=== PATIENT | male | born 1970 | race American Indian/Alaskan Native ===

== ENCOUNTER 2022-03-02 09:32 | Emergency (ER) | payer OTHER ==
--- NOTE | 2022-03-02 10:16 | Emergency Department Report ---
Chief Complaint: Back Pain/Injury Stated Complaint: HEADACHE/LIGHHEADED/BACK PAIN/ X 1 YEAR - HPI History of Present Illness: Chest pain and SOB x 2 months , PTSD, HTN no meds taken. no hx of MT or CVA chest pain is 7 out 10 intermitted pain - ROS Review of Systems: chest pain sternal area. SOB - Exam Vital Signs: Vital Signs 03/02/22 09:33 Temperature 98.0 F Pulse Rate 100 H Respiratory 18 Rate Blood Pressure 155/77 [Left] O2 Sat by Pulse 96 Oximetry MSE screening note: Focused history and physical exam performed. Due to findings the following was ordered: EKG , labs chest xray ordered . orders place patient medically screen to be seen by provider in the back. Active Orders 24 hr Category Date Time Status EKG (12 lead) Stat Cardiology 03/02/22 10:14 Ordered Tech to do EKG .once Care 03/02/22 10:14 Active Complete Blood Count Auto Diff Stat Lab 03/02/22 10:14 Ordered Comprehensive Metabolic Panel Stat Lab 03/02/22 10:14 Ordered PT [Prothrombin Time INR] Stat Lab 03/02/22 10:14 Ordered Partial Thromboplastin Time Stat Lab 03/02/22 10:14 Ordered Troponin T Stat Lab 03/02/22 10:14 Ordered XR chest routine 2V Urgent X-Ray 03/02/22 10:14 Ordered ED Disposition for MSE Condition: Stable
--- NOTE | 2022-03-02 10:36 | XRay Report ---
CHEST 2 VIEWS INDICATION / CLINICAL INFORMATION: Chest Pain. COMPARISON: None available. FINDINGS: SUPPORT DEVICES: None. HEART / MEDIASTINUM: No significant abnormality. LUNGS / PLEURA: No significant pulmonary or pleural abnormality. No pneumothorax. ADDITIONAL FINDINGS: No significant additional findings. IMPRESSION: 1. No acute findings. Signer Name: Andrea Miles Jr, MD Signed: 03/02/2022 10:32 AM Workstation Name: [id number]
[2022-03-02 12:35] LABS: Basophils # (Auto) 0.1 K/mm3 (0.0-0.1); Basophils % (Auto) 0.7 % (0.0-1.8); Eosinophils # (Auto) 0.1 K/mm3 (0.0-0.4); Eosinophils % (Auto) 0.8 % (0.0-4.3); Hematocrit 48.5 % (35.5-45.6); Hemoglobin 15.8 gm/dl (11.8-15.2); Lymphocytes # (Auto) 2.4 K/mm3 (1.2-5.4); Lymphocytes % (Auto) 29.6 % (13.4-35.0); Mean Corpuscular HGB Conc 33 % (32-34); Mean Corpuscular Volume 89 fl (84-94); Monocytes # (Auto) 0.6 K/mm3 (0.0-0.8); Monocytes % (Auto) 7.6 % (0.0-7.3); Platelet Count 257 K/mm3 (140-440); Red Blood Count 5.44 M/mm3 (3.65-5.03); Red Cell Distribution Width 15.1 % (13.2-15.2)
[2022-03-02 12:45] LABS: INR 0.9 (0.87-1.13)
[2022-03-02 12:46] LABS: Partial Thromboplastin Time 31.7 Sec. (24.2-36.6)
[2022-03-02 13:02] LABS: Alanine Aminotransferase 21 units/L (7-56); Albumin 4.6 g/dL (3.9-5); BUN/Creatinine Ratio 10; Blood Urea Nitrogen 10 mg/dL (9-20); Calcium 9.5 mg/dL (8.4-10.2); Hemolysis Index 2
[2022-03-03 03:18] VITALS: BP 116/66
--- NOTE | 2022-03-03 03:59 | Emergency Department Report ---
ED Chest Pain HPI - General Chief Complaint: Chest Pain Stated Complaint: HEADACHE/LIGHHEADED/BACK PAIN/ X 1 YEAR Time Seen by Provider: 03/03/22 03:35 Source: patient Mode of arrival: Ambulatory Limitations: No Limitations - History of Present Illness Severity scale (0 -10): 5 - Related Data Allergies Allergy/AdvReac Type Severity Reaction Status Date / Time Penicillins Allergy Unknown Verified 03/02/22 09:47 Heart Score - HEART Score History: Slightly suspicious EKG: Normal Age: 45-65 Risk factors: 1-2 risk factors Troponin: < normal limit HEART Score: 2 - EKG Read Time Time EKG Completed: 10:35 EKG Read Time: 11:00 - Critical Actions Critical Actions: 0-3 pts:0.9-1.7%risk of adverse cardiac event.Candidate for discharge ED Review of Systems ROS: Stated complaint: HEADACHE/LIGHHEADED/BACK PAIN/ X 1 YEAR Other details as noted in HPI ED Past Medical Hx - Past Medical History Previous Medical History?: No - Surgical History Past Surgical History?: No ED Physical Exam - General Limitations: No Limitations ED Course Vital Signs 03/02/22 03/02/22 03/03/22 09:33 10:12 03:17 Temperature 98.0 F 98.5 F 98.6 F Pulse Rate 100 H 92 H 73 Respiratory 18 18 16 Rate Blood Pressure 155/77 137/89 116/66 [Left] O2 Sat by Pulse 96 99 Oximetry 03/03/22 03/03/22 03:18 04:22 Temperature Pulse Rate Respiratory 17 16 Rate Blood Pressure [Left] O2 Sat by Pulse 97 Oximetry CEDRIC score - Cedric Score Age > 65: (0) No Aspirin use within the Past 7 Days: (0) No 3 or more CAD Risk Factors: (0) No 2 or more Angina events in past 24 hrs: (1) Yes Known CAD with more than 50% Stenosis: (0) No Elevated Cardiac Markers: (0) No ST Deviation Greater than 0.5mm: (0) No CEDRIC Score: 1 ED Medical Decision Making - Lab Data Result diagrams: 03/02/22 11:28 03/02/22 11:28 Critical care attestation.: If time is entered above; I have spent that time in minutes in the direct care of this critically ill patient, excluding procedure time. ED Disposition Clinical Impression: Chest pain Qualifiers: Chest pain type: unspecified Qualified Code(s): R07.9 - Chest pain, unspecified Disposition: 01 HOME / SELF CARE / HOMELESS Is pt being admited?: No Does the pt Need Aspirin: No Condition: Stable Instructions: Chest Wall Pain, [id number], Nonspecific Chest Pain, Adult Additional Instructions: Follow up with your primary care provider or cardiology for further evaluation and management. Return to ED as needed. Referrals: CUCA BRENNER MD [Primary Care Provider] - 3-5 Days DUC LINDA MD [Staff Physician] - 3-5 Days Forms: Work/School Release Form(ED) Time of Disposition: 04:02
[2022-03-03] MEDS ORDERED: KETOROLAC 10 MG TAB PO ONE (04:00)
[2022-03-03] MEDS ORDERED: ACETAMINOPHEN W/CODEINE 300-30 MG TAB PO ONE (04:00)
--- NOTE | 2022-03-03 09:30 | Electrocardiograph Report ---
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
== END 2022-03-03 04:45 | disposition home or self-care (01) ==
LOC: ED 09:32
DX: R06.02 Shortness of breath (principal); R07.9 Chest pain, unspecified
CPT/HCPCS: 36415; 71046; 80053; 84484; 85025; 85610; 85730; 93005; 99284